=== PATIENT | female | born 1960 | race Caucasian/White ===

== ENCOUNTER 2016-08-20 20:17 | Emergency (ER) ==
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
[2016-08-21 01:27] VITALS: BP 124/74
--- NOTE | 2016-08-21 08:30 | Diag Imaging Result Document ---
PROCEDURE NAME: SHOULDER-LEFT - 08/20/2016 LEFT SHOULDER, 3 VIEWS: FINDINGS: There is no evidence of fracture or dislocation. No definite bony abnormalities are present. IMPRESSION: No evidence of acute disease.
--- NOTE | 2016-08-21 08:43 | Diag Imaging Result Document ---
PROCEDURE NAME: CERVICAL SPINE 2-VIEWS - 08/20/2016 CERVICAL SPINE WITH OBLIQUES 8 VIEWS: FINDINGS: There is degenerative disk disease particularly at the C4-5, 5-6, and 6-7 levels. No evidence of fracture or subluxation is present. There is some uncovertebral arthropathy particularly at the C4-5 and 5-6 levels. IMPRESSION: Degenerative changes. No evidence of acute bony disease.
== END 2016-08-21 01:27 | disposition home or self-care (01) ==
LOC: P.ED 20:17
DX: S16.1XXA Strain of muscle, fascia and tendon at neck level, initial encounter (principal); M54.2 Cervicalgia; M25.512 Pain in left shoulder; Y08.89XA Assault by other specified means, initial encounter; Z79.899 Other long term (current) drug therapy; Z79.51 Long term (current) use of inhaled steroids
CPT/HCPCS: 72040; 99283